=== PATIENT | male | born 1960 | race Caucasian/White ===

== ENCOUNTER → 2019-09-06 | Outpatient (CLI) | payer OTHER ==
--- NOTE | 2019-09-06 09:38 | RADIOLOGY REPORT (SQ) ---
EXAM DESCRIPTION: U/S ABDOMEN COMPLETE W/O DOP COMPLETED DATE/TIME: 09/06/2019 7:56 am REASON FOR STUDY: ABDOMINAL PAIN, EPIGASTRIC (R10.13) R10.13 EPIGASTRIC PAIN COMPARISON: None. TECHNIQUE: Dynamic and static grayscale images acquired of the abdomen and recorded on PACS. Additio nal selected color Doppler and spectral images recorded. Note: Study does not meet criteria for complete doppler/duplex scan LIMITATIONS: None. FINDINGS: PANCREAS: No masses. Visualized pancreatic duct normal caliber. LIVER: No discrete solid masses. Anechoic area with single thin septation within the left lobe measu ring 1.6 cm most compatible with a cyst. No intrahepatic ductal dilation. Otherwise normal [place]. LIVER VASCULATURE: Normal directional flow of the main portal vein and hepatic veins. GALLBLADDER: No stones. Normal wall thickness. No pericholecystic fluid. Small focus of ring down ar tifact likely secondary to adenomyomatosis. ULTRASOUND-DETECTED ORELLANA'S SIGN: Negative. INTRAHEPATIC DUCTS AND COMMON DUCT: CBD and intrahepatic ducts normal caliber. No filling defects. INFERIOR VENA CAVA: Normal flow. AORTA: Aorta measures up to 2.9 cm proximally. RIGHT KIDNEY: Normal size measuring 11.8 cm. Normal echogenicity. No solid or suspicious masses. A few scattered cysts, largest measuring 5.1 cm. No hydronephrosis. No calcifications. LEFT KIDNEY: Normal in size measuring 11.6 cm. Normal echogenicity. No solid or suspicious juan jose s. A few cysts, some of which demonstrate single thin septations. The largest measure 2.4 cm. No hydronephrosis. No calcifications. SPLEEN: Normal size measuring 7.4 cm. No solid masses. PERITONEAL AND PLEURAL SPACES: No ascites or effusions. OTHER: No other significant finding. IMPRESSION: 1. No evidence of acute process. 2. 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 3. Scattered renal cysts. TECHNICAL DOCUMENTATION: JOB ID: [id number]- All Rights Reserved Reading location - IP/workstation name: [email or web address]
== END ==
LOC: RAD 06:59
PROVIDERS: ATTEND Internal Medicine Gastroenterology
DX: R10.13 Epigastric pain (principal); Q61.02 Congenital multiple renal cysts
CPT/HCPCS: 76700